=== PATIENT | female | born 1980 | race Caucasian/White ===

== ENCOUNTER 2017-03-06 11:59 | Emergency (ER) | payer OTHER ==
--- NOTE | 2017-03-06 12:26 | ER Document Report ---
ED Psych Disorder / Suicide - General Chief Complaint: Anxiety Stated Complaint: ANXIETY Notes: Patient says that she is suffering from depression and anxiety for the past 5-6 days. The only time she has had problems with depression in her past is that she had depression a couple of years back. She is not currently on any medications for depression. She does see a local neurologist for difficulty getting to sleep at night and fear of dying. She's been put on Klonopin for that problem. It does not seem to be helping her anxiety, however. Patient also has experienced 2 recent deaths in the family. Denies feeling suicidal or homicidal, but did not feel that she should wait any longer to be seen for this problem. PMH: Migraine headaches for which she gets Botox injections. Uterine ablation in July,, for excessive bleeding. History of tachycardia, investigated without significant findings, and on no medicines for same. Hx gastric ulcer TRAVEL OUTSIDE OF THE [place] IN LAST 30 DAYS: No - Related Data Allergies/Adverse Reactions: tramadol Allergy (Verified 03/06/17 12:15) Past Medical History - Social History Smoking Status: Never Smoker Chew tobacco use (# tins/day): No Frequency of alcohol use: Occasional Family History: Reviewed & Not Pertinent Patient has suicidal ideation: No Patient has homicidal ideation: No - Past Medical History Cardiac Medical History: Reports: Other - History of long-standing, chronic, benign tachycardia. Denies: Hx Coronary Artery Disease, Hx Heart Attack, Hx Hypertension Pulmonary Medical History: Denies: Hx Asthma, Hx Bronchitis, Hx COPD, Hx Pneumonia Neurological Medical History: Reports: Hx Migraine - On Botox injections and Fioricet when necessary, Hx Seizures - When taking Benadryl and tramadol. Denies: Hx Cerebrovascular Accident Musculoskeltal Medical History: Denies Hx Arthritis Psychiatric Medical History: Reports: Other - Only depression a couple of years ago. Past Surgical History: Reports: Hx Section, Hx Genitourinary Surgery - Endometrial ablation July, - Immunizations Hx Diphtheria, Pertussis, Tetanus Vaccination: Yes Review of Systems - Review of Systems Notes: REVIEW OF SYSTEMS: CONSTITUTIONAL : Denies fever. Denies the use of any illicit drugs. EENT: Denies eye, ear, nose or mouth or throat pain or other symptoms. CARDIOVASCULAR: Denies chest pain. See history of present illness regarding chronic tachycardia. Patient says it's been thoroughly worked up including thyroid functions, etc. RESPIRATORY: Denies cough, chest congestion, or shortness of breath. GASTROINTESTINAL: Denies abdominal pain or nausea, vomiting, or diarrhea. GENITOURINARY: Denies difficulty or painful urinating, urinary frequency, blood in urine. MUSCULOSKELETAL: Denies back or neck pain. Denies joint pain or swelling. SKIN: Denies rash or skin lesions. NEUROLOGICAL: Denies LOC or altered mental status. Denies current headache. Denies sensory loss or motor deficits. ALL OTHER SYSTEMS REVIEWED AND NEGATIVE. Physical Exam - Vital signs Vitals: Temp Pulse Resp BP Pulse Ox 98.1 F 118 H 16 120/94 H 98 03/06/17 12:05 03/06/17 12:05 03/06/17 12:05 03/06/17 12:05 03/06/17 12:05 Interpretation: Normal, Tachycardic - Notes Notes: PHYSICAL EXAMINATION: GENERAL: Well-appearing, in no acute distress. Vital signs normal except for a slightly elevated heart rate of 110 at the bedside by me. HEAD: Atraumatic, normocephalic. EYES: Pupils equal round and reactive to light, extraocular movements intact. NECK: Normal range of motion, supple. LUNGS: Breath sounds clear and equal bilaterally. HEART: Regular rate and rhythm without murmurs. There is a prominent S2 suggestive of MVP, but patient says she's never been told she has mitral valve prolapse. No murmur. Heart rate is 110 at bedside by me. ABDOMEN: Soft, nontender. No guarding or rebound. BACK: No tenderness throughout entire back. EXTREMITIES: Normal range of motion without pain. NEUROLOGICAL: Normal speech, normal gait. Normal sensory, motor, and reflex exams. Awake, alert, and oriented x3. Cranial nerves normal. PSYCH: Normal mood, normal affect. Calm and does not appear to be significantly depressed clinically. SKIN: Warm, dry, no rashes. Course - Re-evaluation Re-evalutation: 03/06/17 12:55 Have asked mental health provider on duty today to evaluate patient. - Vital Signs Vital signs: Temp Pulse Resp BP Pulse Ox 98.1 F 118 H 16 120/94 H 98 03/06/17 12:05 03/06/17 12:05 03/06/17 12:05 03/06/17 12:05 03/06/17 12:05 Discharge - Discharge Clinical Impression: Anxiety Depression Qualifiers: Depression Type: unspecified Qualified Code(s): F32.9 - Major depressive disorder, single episode, unspecified Condition: Stable Disposition: HOME, SELF-CARE Instructions: Anxiety (OM) Additional Instructions: Anxiety The physician feels that some of your health problems are being caused by anxiety. Anxiety affects your health in many ways. Anxiety alone can cause palpitations, sweats, chest pains, abdominal pains, shortness of breath, and headaches. It contributes to ulcer disease, high blood pressure, irritable bowel syndrome, and has been shown to cause flare-ups of many other diseases. Anxiety is not a simple disorder to treat. If the anxiety is due to recent life stresses, you may simply need time to "work through" the changes. If the anxiety is due to an underlying unhappiness with yourself or due to psychiatric disturbance, professional help will be needed. Your physician can refer you for further help if needed. Anti-anxiety medication is occasionally given if the stress is acute or if you are having trouble sleeping. Chronic or frequent use of these medications is not a good idea because the body becomes reliant on it, preventing you from dealing with life's normal stresses. DEPRESSION: Your evaluation reveals that you have mental depression. While symptoms may be vague, they often include disturbance of sleep, fatigue, loss of appetite , and general loss of interest in life. While depression may be a side effect of drugs, or a reaction to a major change in your life, many cases have no known cause. If depression is acute, and related to a major loss in your life, you can expect it to clear completely with time. If you have been depressed a long time , are prone to repeated bouts of depression or low mood, or have been thinking of suicide, get help. Depression can be treated with anti-depressant medication and counselling. Long-term depression will often take a few weeks to clear, even with appropriate medication. Follow-up care is important. FOLLOW-UP CARE: If you have been referred to a physician for follow-up care, call the physician s office for an appointment as you were instructed or within the next two days. If you experience worsening or a significant change in your symptoms, notify the physician immediately or return to the Emergency Department at any time for re-evaluation. You have been evaluated by our mental health provider in the emergency department. You have indicated that you are not having suicidal thoughts and you do not feel that you are a danger to yourself or anyone else. If your feelings change, please return immediately for us to reevaluate your condition. Follow-up with a local mental health provider during the coming week. Our mental health provider suggested [facility] and I have provided you with contact information for that facility. Referrals: [facility] [Provider Group] - Follow up in 3-5 days
--- NOTE | 2017-03-06 13:39 | PSYCHOLOGICAL NOTE ---
Psych Note - Psych Note Psych Note: Patient is a 36 year old female who presents voluntarily seeking assistance for depression. Patient states the severe depression has been present for about 5 days, but states she could feel it creeping up. She states she experienced depression in the past when she was . Patient states during then her MD started her on Prozac, which she states worked well, but took about 6-8 weeks. She states the thought of experiencing this for another 6 weeks makes it worse. She states she did talk with her MD recently and she was started on Klonopin. Patient states it helped her feel tired, but she does not want to feel tired, she wants to feel happy. She states she did suffer 2 deaths in her family this past week; however, states they are non contributing factors. Patient states she is not experiencing thoughts of harming herself or anyone else, she just desperately wants to rerun to her happy lifestyle. Patient states she called a local provider and they cannot fit her in until the end of the first week of March, which she states is too long. She states she did some research, and found Ketamine to be efficacious for immediate relief from depressive symptoms. Discussed with patient various local providers, as well as the option of returning to her OB to request a prescription. She states she was hesitant to do so because she took it upon herself to discontinue the medication when she felt like she was feeling better. Patient reports in her home is her and 2 children, all of whom she states are supportive. Patient is A&O. Mood is depressed with occasionally tearful affect. Patient denies suicidal/homicidal ideations, intent, plan, or means. Patient denies A/V h; delusions not noted. Thought processes were organized. Conversational speech was WNL for prosody. Intellectual abilities were estimated within average range. Attention and focus were fair. Insight, judgment, and impulse control were fair. Unspecified Depressive Disorder Patient is psychiatrically cleared for discharge and recommended to follow up with a provider of her choice. Patient was provided a list of resources and has identified [facility]. Patient will additionally call her OBGYN to request another prescription for the Prozac. She denies anything specific triggered her visit this morning and states she just couldn't stand the thought of sittng on the couch another day. Patient presents well groomed and as thought she engages in self care. Patient denies SI/HI. I consulted with Dr. Boyle in regards to the care and management of this patient. ED MD is in agreement with disposition and recommendations.
[2017-03-06 14:24] VITALS: BP 110/75
== END 2017-03-06 14:10 | disposition home or self-care (01) ==
LOC: ER 11:59
DX: F41.9 Anxiety disorder, unspecified (principal); F32.9 Major depressive disorder, single episode, unspecified
CPT/HCPCS: 99284